=== PATIENT | female | born 1970 | race Caucasian/White ===

== ENCOUNTER 2020-01-30 16:23 | Inpatient (IN) | payer OTHER ==
[~2020-01-30] VITALS: Ht 160 cm; Wt 68.0 kg
[2020-01-30] MEDS ORDERED: MEGESTROL ACETA40 MG (16:35)
--- NOTE | 2020-01-30 16:35 | NUR ---
PTE REFIERE SANGRADO VAGINAL Y HEMOGLOBINA SE QUINN S/V Y SE UBICA EN AREA DE OBSERVACION
[2020-02-07] MEDS ORDERED: ZITHROMAX500 MG PO (15:38)
[2020-02-07] MEDS ORDERED: INTEGRA F CAPS1 EACH PO (15:39)
[2020-02-07] MEDS ORDERED: ST. JOSEPH ASPI81 M2 PO (15:39)
[2020-02-07] MEDS ORDERED: LOW-OGESTREL-21 EACH PO (15:40)
[2020-02-07] MEDS ORDERED: B Complex CAPSULE PO (15:41)
[2020-02-07] MEDS ORDERED: VITAMIN C500 M1 PO (15:41)
== END 2020-02-07 16:28 | disposition home or self-care (01) | DRG 812 ==
LOC: ER 16:23 → OB/GYN 22:59
PROVIDERS: ADMIT Obstetrics & Gynecology; ATTEND Obstetrics & Gynecology
PROC: BU4CZZZ Ultrasonography of Uterus and Ovaries (ICD-10-PCS; principal; 2020-01-31)
PROC: B54NZZZ Ultrasonography of Left Upper Extremity Veins (ICD-10-PCS; 2020-02-06)
PROC: 4A02XFZ Measurement of Cardiac Rhythm, External Approach (ICD-10-PCS; 2020-02-07)
DX: D50.0 Iron deficiency anemia secondary to blood loss (chronic) (principal); L03.114 Cellulitis of left upper limb; D25.9 Leiomyoma of uterus, unspecified; N83.202 Unspecified ovarian cyst, left side; N92.0 Excessive and frequent menstruation with regular cycle; Z53.1 Procedure and treatment not carried out because of patient's decision for reasons of belief and group pressure; Z20.828 Contact with and (suspected) exposure to other viral communicable diseases